=== PATIENT | male | born 1945 | race Caucasian/White ===

== ENCOUNTER 2019-11-14 06:20 | Day surgery (SDC) | payer MEDICARE ==
[~2019-11-14] VITALS: Ht 185.4 cm; Wt 104.5 kg
[~2019-11-14 06:20] MED LIST: ADALAT CC90 MG PO; ALDACTONE 25MG25 M1 PO; CLARITIN 1010 MG/TAB PO; COLACE 100100 MG/CAP PO; COUMADIN 3MG3 MG/TAB; GLUCOTROL 5M5 MG/TAB PO; HCTZ12.5TAB; HYTRIN 1MG C1 MG/CAP PO; LIPITOR20 MG PO; MINOXIDIL 2.5 PO; PERCOCET 325 MG1 TA2 PO; PRINIVIL40 MG PO; TENORMIN 2525 MG/TAB PO; TOPROL XL100 MG; ULTRAM 50MG TAB50 MG PO
[2019-11-14 06:24] VITALS: BP 121/70; PULSE 97; TEMP 97.5
[2019-11-14] MEDS ORDERED: TENORMIN 5050 MG/TAB PO (06:41)
[2019-11-14] MEDS ORDERED: CALCIUM CARBON650 M2 PO (06:41)
[2019-11-14] MEDS ORDERED: CLARITIN 1010 MG/TAB PO (06:42)
[2019-11-14] MEDS ORDERED: LANOXIN 0.120.125 MG PO (06:43)
[2019-11-14] MEDS ORDERED: FLOMAX 0.40.4 MG/CAP PO (06:43)
[2019-11-14] MEDS ORDERED: HYTRIN 1MG C1 MG/CAP PO (06:44)
[2019-11-14] MEDS ORDERED: GLUCOTROL 5M5 MG/TAB PO (06:44)
[2019-11-14] MEDS ORDERED: HCTZ12.5TAB PO (06:44)
[2019-11-14] MEDS ORDERED: LIPITOR 10MG10 MG PO (06:45)
[2019-11-14] MEDS ORDERED: PEPCID 20MG TAB20 MG PO (06:46)
[2019-11-14] MEDS ORDERED: DOXYCYCLINE 10100 MG PO (06:46)
[2019-11-14] MEDS ORDERED: MINOXIDIL 2.5 PO (06:46)
[2019-11-14] MEDS ORDERED: COUMADIN4 MG PO (06:47)
--- NOTE | 2019-11-14 06:49 | NUR ---
PATIENT AND FRIEND FLORENCIO ARE BOTH POOR HISTORIANS OF PATIENTS MEDS. I TOOK THE LIST FROM THE [facility] AND REVIEWED WITH WITH FLORENCIO.
[2019-11-14 09:20] VITALS: BP 120/85; PULSE 77; TEMP 97.4
--- NOTE | 2019-11-14 09:20 | NUR ---
TO RM 8 PER CART FROM PACU. DROWSY OPENS EYES ANSWERS QUESTIONS AND FALLS BACK TO SLEEP. DENIES PAIN OR DISCOMFORT. NO GRIMACE OR DISTRESS NOTED.
[2019-11-14 09:35] VITALS: BP 122/67; PULSE 75
--- NOTE | 2019-11-14 09:35 | NUR ---
LITTLE MORE AWAKE AND RECEIVED WATER. TAKING SIPS OF WATER AND TOLERATING WELL.
[2019-11-14 10:05] VITALS: BP 121/85; PULSE 72
--- NOTE | 2019-11-14 10:05 | NUR ---
RECEIVED EMILIEIN AND FRIEND DIMITRIOS FEEDING HIM.
[2019-11-14 10:35] VITALS: BP 123/87; PULSE 86
--- NOTE | 2019-11-14 10:35 | NUR ---
ATE 100% AND TOLERATED WELL PATIENT ASK FOR A URINAL
[2019-11-14 11:15] VITALS: BP 128/71; PULSE 89
--- NOTE | 2019-11-14 11:15 | NUR ---
PATIENT WANTS TO GO HOME, BUT HAS NOT VOIDED. DR PITTS CALLED AND LEFT MESSAGE
--- NOTE | 2019-11-14 11:30 | NUR ---
PATIENT SCANNED WITH 127 CC. PATIENT THEN VOIDED 50CC LIGHT PINK URINE.
--- NOTE | 2019-11-14 11:50 | NUR ---
PATIENT AND HIS MARKET SPECIALIST RECEIVED DISCHARGE INSTRUCTIONS AND VERBALIZED UNDERSTANDING. I REPEATED TO PATIENT AND THAT HE NEEDED TO DRINK PLENTY OF FLUIDS.
--- NOTE | 2019-11-14 11:55 | NUR ---
DISCONTINUED IV AND INT- CATHETER INTACT. FRIEND FLORENCIO ASSISTING PATIENT DRESSED.
--- NOTE | 2019-11-14 12:10 | NUR ---
DISCHARGED PER WC BY NURSING STAFF TO PRIVATE CAR IN CARE OF FLORENCIO. TRANSFERED TO [place] WITH 2 ASSIST USING A GAIT BELT. 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
== END 2019-11-14 12:15 | disposition home or self-care (01) ==
LOC: SDCO 06:20
DX: N20.2 Calculus of kidney with calculus of ureter (principal); R31.0 Gross hematuria; R39.11 Hesitancy of micturition; I12.9 Hypertensive chronic kidney disease with stage 1 through stage 4 chronic kidney disease, or unspecified chronic kidney disease; E11.22 Type 2 diabetes mellitus with diabetic chronic kidney disease; N18.2 Chronic kidney disease, stage 2 (mild); E78.5 Hyperlipidemia, unspecified; E87.6 Hypokalemia; G30.9 Alzheimer's disease, unspecified; F02.80 Dementia in other diseases classified elsewhere, unspecified severity, without behavioral disturbance, psychotic disturbance, mood disturbance, and anxiety; G20 Parkinson's disease; F32.9 Major depressive disorder, single episode, unspecified; Z79.899 Other long term (current) drug therapy; Z20.828 Contact with and (suspected) exposure to other viral communicable diseases; Z79.01 Long term (current) use of anticoagulants; Z79.84 Long term (current) use of oral hypoglycemic drugs
CPT/HCPCS: C1769; C2617; J0690; J2370; J2704; J3010; Q9967

== ENCOUNTER → 2020-01-16 | Outpatient (CLI) | payer MEDICARE ==
[~2020-01-16] MED LIST changes: +CALCIUM CARBON650 M2 PO; +COUMADIN4 MG PO; +DOXYCYCLINE 10100 MG PO; +FLOMAX 0.40.4 MG/CAP PO; +HCTZ12.5TAB PO; +LANOXIN 0.120.125 MG PO; +LIPITOR 10MG10 MG PO; +PEPCID 20MG TAB20 MG PO; +TENORMIN 5050 MG/TAB PO
== END ==
LOC: SDCO 01-09 08:30 → COL.LAB 08:00 → SDCO 08:30 → EDSTATUS 08:30
DX: N20.2 Calculus of kidney with calculus of ureter (principal); R39.11 Hesitancy of micturition